=== PATIENT | male | born 1990 | race Caucasian/White ===

== ENCOUNTER 2019-09-13 12:21 | Emergency (ER) | payer OTHER ==
[2019-09-13 12:34] VITALS: BP 152/104; PULSE 78; RESP 18; TEMP 98
[2019-09-13] MEDS ORDERED: ACET/COD 300 MG/30 MG STARTER PACK 6 TAB BTL PO STA (13:23)
[2019-09-13] MEDS ORDERED: CLINDAMYCIN 150 MG/ML 2 ML VIAL IM STA (13:27)
--- NOTE | 2019-09-13 13:28 | ED ---
ENT HPI - General Chief complaint: Dental/Oral Stated complaint: dental infection Time Seen by Provider: 09/13/19 13:06 Source: patient Mode of arrival: ambulatory Limitations: no limitations - History of Present Illness Initial comments: 29-year-old male presented for right lower dental pain patient states he has mild right lower facial swelling and dental pain he denies swelling of the neck he denies any swelling below tongue rashes fevers. Patient states he cannot take the pain he states he has had abscesses in the past he states he does not know a specific abscess when he is palpated. Patient denies any other areas of complaints. Patient denies any neck stiffness difficulty breathing or swallowing patient denies a difficulty opening his mouth. Patient states he is to scheduled [facility]. Patient states he took 3 days of amoxicillin that he had left over. Remaining review systems negative upon arrival patient appears nontoxic - Related Data Previous Rx's Medication Instructions Recorded Clindamycin [Cleocin] 450 mg PO Q8H 7 Days #63 capsule 09/13/19 Allergies Allergy/AdvReac Type Severity Reaction Status Date / Time ondansetron [From Zofran] Allergy Swelling Verified 09/13/19 12:35 Review of Systems ROS Statement: Those systems with pertinent positive or pertinent negative responses have been documented in the HPI. ROS Other: All systems not noted in ROS Statement are negative. Past Medical History Additional Past Medical History / Comment(s): crohns History of Any Multi-Drug Resistant Organisms: None Reported Past Surgical History: Bowel Resection Additional Past Surgical History / Comment(s): skin reconstructive surg from dog bite Past Psychological History: Anxiety Smoking Status: Current every day smoker Past Alcohol Use History: Rare Past Drug Use History: Marijuana General Exam - General Exam Comments Initial Comments: General: The patient is awake and alert, in no distress, and does not appear acutely ill. Eye: Pupils are equal, round and reactive to light, extra-ocular movements are intact. No nystagmus. There is normal conjunctiva bilaterally. No signs of icterus. Ears, nose, mouth and throat: There are moist mucous membranes and no oral lesions. Poor dentition overall multiple caries and cracked teeth. Patient has some soft tissue swelling to the right lower mandible there is no swelling below the angle of the mandible of the neck there is no trismus there is no swelling below the tongue. tenderness to percussion of tooth #29/28 Neck: The neck is supple, there is no tenderness or JVD. Cardiovascular: There is a regular rate and rhythm. No murmur, rub or gallop is appreciated. Respiratory: Lungs are clear to auscultation, respirations are non-labored, breath sounds are equal. No wheezes, stridor, rales, or rhonchi. Musculoskeletal: Normal ROM, no tenderness. Strength 5/5. Sensation intact. Pulses equal bilaterally 2+. Neurological: A&O x 3. CN II-XII intact, There are no obvious motor or sensory deficits. Coordination appears grossly intact. Speech is normal. Skin: Skin is warm and dry and no rashes or lesions are noted. Psychiatric: Cooperative, appropriate mood & affect, normal judgment. Limitations: no limitations Course Vital Signs 09/13/19 12:31 Temperature 98.0 F Pulse Rate 78 Respiratory 18 Rate Blood Pressure 152/104 O2 Sat by Pulse 98 Oximetry Medical Decision Making - Medical Decision Making 29-year-old male presenting today for chief complaint of right lower dental pain. No abscess on exam. no signs of ludwigs angina or deep space exam on PE. patient afebrile nontoxic in appearance do not feel there is systemic spread of infection. At this time of discharge patient with clindamycin and dental fol low-up tomorrow return parameters were discussed at length and patient verbalize understanding he was discharged appearing well after discussing case with Dr. Julian Disposition Clinical Impression: Pain, dental Disposition: HOME SELF-CARE Condition: Good Instructions (If sedation given, give patient instructions): Dental Abscess (ED) Additional Instructions: Please use medication as discussed. Please follow-up with dentist tomorrow as d iscussed. Please return to emergency room if the symptoms increase or worsen or for any other concerns. Prescriptions: Clindamycin [Cleocin] 450 mg PO Q8H 7 Days #63 capsule Is patient prescribed a controlled substance at d/c from ED?: No Referrals: None,Stated [Primary Care Provider] - 1-2 days Time of Disposition: 13:28
== END 2019-09-13 14:01 | disposition home or self-care (01) ==
LOC: EC 12:21
DX: K02.9 Dental caries, unspecified (principal); K03.81 Cracked tooth; R22.0 Localized swelling, mass and lump, head; F17.200 Nicotine dependence, unspecified, uncomplicated; Z88.8 Allergy status to other drugs, medicaments and biological substances
CPT/HCPCS: 96372; 99283